=== PATIENT | male | born 1995 | race Two or more races ===

== ENCOUNTER 2018-12-21 01:11 | Emergency (ER) | payer SELFPAY, MEDICAID ==
[2018-12-21] MEDS: LIDOCAINE 1% (MDV) 20 ML INJ SC (02:17)
[2018-12-21] MEDS: HYDROCODONE/APAP (5/325) TAB PO (02:18)
== END 2018-12-21 04:10 | disposition home or self-care (01) ==
LOC: FTE 01:11
DX: S31.21XA Laceration without foreign body of penis, initial encounter (principal); X58.XXXA Exposure to other specified factors, initial encounter; Y92.9 Unspecified place or not applicable
CPT/HCPCS: 12002; 99283-25